=== PATIENT | female | born 1940 | race Caucasian/White ===

== ENCOUNTER 2017-08-08 13:23 | Emergency (ER) | payer OTHER ==
[2017-08-08 13:28] VITALS: BP 88/55; BMI 29.8
--- NOTE | 2017-08-08 14:11 | DR.GENAD ---
HPI - PCP Primary Care Physician: AMMY - HPI Comment HPI Comment: HISTORY BELOW. - Complaint/Symptoms Chief Complaint Doctors Comments: STYE LEFT UPPER EYE LID NOTED TODAY. PAIN AND REDNESS LEFT EYE. Chief Complaint:: PT C/O RT EYE PAIN. PT STATES SHE HAS A BUMP LIKE A STY ON THE INSIDE OF HER RT UPPER EYELID. PT STATES THIS CAME UP THIS AM - Nurses notes reviewed Nurses Notes Review: Yes - Source History Provided: Patient - Mode of Arrival Mode of Arrival: Ambulatory - Timing Onset of Chief Complaint: 08/08/17 Came on: Suddenly - Duration Duration: Constant Duration: Days - Severity Severity: Moderate PMH - PMH Past Medical History: Yes Past Medical History: Coronary Artery Disease, Hypertension Past Surgical History: Yes Surgical History: Hysterectomy, Other - Family History History of Family Medical Conditions: Yes - Social History Does any household member use tobacco: No Alcohol Use: None Do you use any recreational Drugs:: No Lives With: Family Lives Where: Home - infectious screening In the last 2 months have you had wt loss of >10#?: NO Have you had fever, night sweats or hemotysis?: No Have you traveled outside the country in the last 6 months?: No Isolation: Standard ROS - Review of Systems Constitutional: No Symptoms Reported Eyes: Eye Pain, Discharge ENTM: No Symptoms Reported Respiratoy: No Symptoms Reported Cardiovascular: No Symptoms Reported Gastrointestinal/Abdominal: No Symptoms Reported Genitourinary: No Symptoms Reported Neurological: No Symptoms Reported Musculoskeletal: No Symptoms Reported Integumentary: No Symptoms Reported Hematologic/Lymphatic: No Symptoms Reported Endocrine: No Symptoms Reported All Other Systems: Reviewed and Negative PE - Vital Signs Vitals: Temperature 97.5 F Pulse Rate 71 Respiratory Rate 20 Blood Pressure [Left Arm] 140/62 Blood Pressure 88/55 O2 Sat by Pulse Oximetry 95 - General Limitations: No Limitations General Appearance: Alert - Head Head Exam: Normal Inspection - Eyes Eye exam: PERRL, EOMI, Conjunctival Injection, Periorbital Swelling (LEFT UPPER EYE LID). negative: Scleral Icterus, Nystagmus - ENT ENT Exam: Normal External Ear Exam External Ear Exam: Normal External Inspection TM/Canal Exam: Bilateral Normal Nose Exam: Normal Nose Exam Mouth Exam: Normal Inspection Throat Exam: Normal Inspection - Neck Neck Exam: Normal Inspection - Chest Chest Inspection: Symmetric Chest Wall Rise - Respiratory Respiratory Exam: Normal Lung Sounds Bilat Respiratory Exam: Bilateral Clear to Auscultation - Cardiovascular Cardiovascular Exam: Regular Rate, Normal Rhythm - Abdominal Exam Abdominal Exam: Normal Bowel Sounds, Soft. negative: Tenderness - Extremities Extremities Exam: Normal Inspection - Back Back Exam: Normal Inspection - Neurologic Neurological Exam: Alert, Oriented X3 - Psychiatric Psychiatric Exam: Normal Affect, Normal Mood - Skin Skin Exam: Normal Color MDM - Differential Diagnosis Differential Diagnosis: STYE LT EYE LID, CONJUNCTIVITIS LT EYE. Course - Treatment Treatment: SEE ORDERS. - Education/Counseling Education/Counseling: Patient, Education Educated On: Diagnosis, Needs for Follow Up - Diagnosis Discharge Problem: Stye Qualifiers: Laterality: left Eyelid: upper Qualified Code(s): H00.014 - Hordeolum externum left upper eyelid Conjunctivitis Qualifiers: Conjunctivitis type: acute Acute conjunctivitis type: bacterial Laterality: left Qualified Code(s): H10.32 - Unspecified acute conjunctivitis, left eye - Discharge Plan Disposition: 01 HOME, SELF-CARE Condition: Stable Prescriptions: Neomycin/Bacit/P-Myx/Hydrocort [[id number] Eye Ointment] 3.5 gm OP QID # 1 oint...g. - Follow ups/Referrals Follow ups/Referrals: ANGIE GIMENEZ [Primary Care Provider] - 2 days - Instructions Instructions: Bacterial Conjunctivitis, [id number] Additional Instructions: RETURN TO ED IF WORSE. PATIENT HAVE STYE RIGHT EYE.
== END 2017-08-08 14:33 | disposition home or self-care (01) ==
LOC: ER 13:40
DX: H10.89 Other conjunctivitis (principal)
CPT/HCPCS: 99281; 99282